=== PATIENT | female | born 1965 | race Caucasian/White ===

== ENCOUNTER → 2016-08-13 | Outpatient (CLI) | payer OTHER ==
[2016-08-13 17:06] LABS: PROLACTIN 8.6 NG/ML
[2016-08-13 17:38] LABS: CONTROL LINE HCG INT CTR LINE PRESENT
[2016-08-13 18:08] LABS: FREE T4 0.78 NG/DL (0.76-1.46); GLUCOSE, FASTING 75 MG/DL (70-105)
[2016-08-13 20:29] LABS: BASO % 0.3 % (0.0-1.0); EOS % 0.3 % (0.0-3.0); LARGE UNSTAINED CELL # 0.1 K/mm3 (0.0-0.4); LARGE UNSTAINED CELL % 2.2 % (0.0-4.0); LYMPH # 1.7 K/mm3 (1.5-4.5); LYMPH % 26.2 % (24.0-44.0); MEAN CORPUSCULAR HEMOGLOBIN 29.3 pg (27.0-33.0); MEAN CORPUSCULAR HGB CONC 31.5 g/dl (32.0-36.5); MEAN CORPUSCULAR VOLUME 93.1 fl (80.0-96.0); MONO # 0.4 K/mm3 (0.0-0.8); MONO % 6.3 % (0.0-5.0); NEUTROPHILS # 4.1 K/mm3 (1.8-7.7); NEUTROPHILS % 64.6 % (36.0-66.0); PLATELET COUNT, AUTOMATED 222 k/mm3 (150-450); RED CELL DISTRIBUTION WIDTH 11.9 % (11.5-14.5); WHITE BLOOD COUNT 6.4 K/mm3 (4.0-10.0)
--- NOTE | 2016-08-14 04:57 | REP ---
Clinical: Fibroids. Endometrial polyp. Technique: Transabdominal pelvic ultrasound followed by transvaginal examination for better evaluation of the endometrium and adnexa with color Doppler evaluation of the ovaries. Findings: Bladder is under distended and measures 11.9 x 4.5 x 11.1 cm. Heterogeneous, retroverted myomatous uterus measures 11.7 x 8.6 x 9.0 cm. The endometrial complex measures 12.9 mm thickness. Submucosal anterior fibroid measures 8.8 cm maximal diameter causing mass effect on the underlying endometrial canal. Bilateral ovaries are normal in appearance and vascularity without evidence for torsion. Right ovary measures 3.0 x 2.1 x 2.1 cm ; R I = 0.57 . Left ovary measures 3.1 x 1.8 x 2.8 cm with 2.3 cm dominant follicle ; R I = 0.54 . No pelvic fluid or adnexal mass lesion . Impression: 1. Large anterior submucosal fibroid measuring 8.8 cm maximal diameter dominating the uterus and causing mass effect on the endometrial canal. The endometrium is thickened to 12.9 mm without discrete polyp or lesion identified. 2. Normal bilateral ovaries without torsion. 2.3 cm dominant follicle noted in the left ovary. Signed by Kyler Power MD 08/14/2016 04:48 A
== END ==
LOC: M RAD 14:16 → M LAB 14:16
PROVIDERS: ATTEND Obstetrics & Gynecology
DX: R61 Generalized hyperhidrosis (principal); D25.1 Intramural leiomyoma of uterus; R93.8 Abnormal findings on diagnostic imaging of other specified body structures

== ENCOUNTER → 2016-08-20 | Day surgery (SDC) | payer OTHER ==
[~2016-08-20] VITALS: Ht 165.1 cm; Wt 64.9 kg
[~2016-08-20] MED LIST: IBUPROFEN 600 MG TAB PO PRN; KETOROLAC 60 MG/2 ML VIAL (J1885) As Ordered ONE; LIDOCAINE 2% INJ 100 MG/5 ML SDV (FOR ANES.) As Ordered ONE; LR 1,000 ML IV ONE; LR 1,000 ML IV SCH; MIDAZOLAM INJ 2 MG/2 ML VIAL (J2250) As Ordered ONE; ONDANSETRON 4MG/2ML VIAL (J2405) As Ordered ONE; ONDANSETRON 4MG/2ML VIAL (J2405) IV PRN; PROPOFOL 200 MG/20 ML VIAL As Ordered ONE; VITA200016 PO; WELLTAB38 PO; dexameTHASONE 4 MG/ML 1ML VIAL (J1100) As Ordered ONE; ePHEDrine SULFATE 25 MG/5 ML(5MG/ML) SYRINGE As Ordered ONE; fentaNYL 100 MCG/2 ML INJECTION (J3010) As Ordered ONE; fentaNYL 100 MCG/2 ML INJECTION (J3010) IV PRN
[2016-08-20 13:00] VITALS: BP 123/72
--- NOTE | 2016-08-20 18:12 | RO ---
DATE OF PROCEDURE: 08/20/2016 PREPROCEDURE DIAGNOSIS/INDICATION FOR SURGERY: Menorrhagia, dysmenorrhea and fibroids. POSTPROCEDURE DIAGNOSIS: Menorrhagia, dysmenorrhea and fibroids. PROCEDURE: Dilatation an curettage (D and C) hysteroscopy. SURGEON: Joleen Randle MD PLASTICS SUPERVISOR: ANESTHESIA: Laryngeal mask anesthesia (LMA). BRIEF DESCRIPTION OF PROCEDURE AND FINDINGS: Poonam was brought to the operating room where sufficient LMA anesthesia was induced and she was prepped, draped and positioned in the usual sterile fashion. The fibroid uterus was carefully sounded to a 11 today with a cavity length of 6.5. We were hopeful that we could get the NovaSure to work. We do not have a working roller ball here. We were able to undertake hysteroscopy with no difficulty. We could see there was no perforation and a smooth cavity. So even though she has an enlarged fibroid uterus it did not seem to be impinging on the cavity excessively so we felt that we could place the NovaSure. We went ahead and placed the NovaSure tested twice and failed both times. Scoped again and there was no perforation. It appeared to be I think a size issue but I am really not sure. We opened another NovaSure because there is clearly no perforation in this uterus. She sounds to 11 not 10 but only has a cavity length of 6.5, and there was no perforation. We placed the NovaSure again and again failed twice, finally which we gave up on the idea of ablation. We do not have a functional roller ball nor resectoscope in this institution to do that type of resection. Went ahead and aggressively curettaged and in fact there is a soft area in this uterus anteriorly lower uterine segment. We did go ahead and sample that carefully and got a good sample of the endometrium which is fairly smoothly overgrown. It is not like there was a polyp or anything like that. She does though have the enlarged fibroid uterus. After aggressive curettage the procedure was ended. ESTIMATED BLOOD LOSS FOR THE PROCEDURE: Maybe 25 mL because we did get a bit of tissue back from that soft area. FLUID REPLACEMENT: Crystalloid. COMPLICATIONS: As noted above. We were unable to get the NovaSure to work. This did not appear to be a cervical leakage issue. I guess it is the length, even though I have had it work in that circumstance before, but we did try two wands to make sure that it was not a matter of malfunction or anything like that. We did scope her multiple times. There is no perforation in this uterus, at least not that ws visible to the naked eye but it is possible for it to fail just simply from being oversized and she does have a very roomy cavity and the width was 4.7. Length was 6.5 with 4.7, that is a roomy cavity so I suspect that was the issue. Again we did not have another device to substitute and of course ThermaChoice is no longer marketed so we had to abandon those efforts and carried out aggressive curettage and we ended the procedure. CONDITION AND DISPOSITION: Poonam tolerated the procedure well. She was recovering in the recovery room in good condition.
== END ==
LOC: M SDC 08:02
PROVIDERS: ATTEND Obstetrics & Gynecology
DX: N92.0 Excessive and frequent menstruation with regular cycle (principal); N94.6 Dysmenorrhea, unspecified; D25.9 Leiomyoma of uterus, unspecified; R01.1 Cardiac murmur, unspecified; L40.9 Psoriasis, unspecified; G43.909 Migraine, unspecified, not intractable, without status migrainosus; F32.9 Major depressive disorder, single episode, unspecified; F41.9 Anxiety disorder, unspecified; Z79.899 Other long term (current) drug therapy

== ENCOUNTER 2021-07-30 14:06 | Emergency (ER) | payer OTHER ==
[~2021-07-30] VITALS: Ht 162.6 cm; Wt 67.9 kg
[~2021-07-30 14:06] MED LIST changes: -IBUPROFEN 600 MG TAB PO PRN; -KETOROLAC 60 MG/2 ML VIAL (J1885) As Ordered ONE; -LIDOCAINE 2% INJ 100 MG/5 ML SDV (FOR ANES.) As Ordered ONE; -LR 1,000 ML IV ONE; -LR 1,000 ML IV SCH; -MIDAZOLAM INJ 2 MG/2 ML VIAL (J2250) As Ordered ONE; -ONDANSETRON 4MG/2ML VIAL (J2405) As Ordered ONE; -ONDANSETRON 4MG/2ML VIAL (J2405) IV PRN; -PROPOFOL 200 MG/20 ML VIAL As Ordered ONE; -dexameTHASONE 4 MG/ML 1ML VIAL (J1100) As Ordered ONE; -ePHEDrine SULFATE 25 MG/5 ML(5MG/ML) SYRINGE As Ordered ONE; -fentaNYL 100 MCG/2 ML INJECTION (J3010) As Ordered ONE; -fentaNYL 100 MCG/2 ML INJECTION (J3010) IV PRN
[2021-07-30 19:10] LABS: HEMATOCRIT 38.3 % (36.0-47.0); HEMOGLOBIN 12.5 g/dl (12.0-15.5); MEAN CORPUSCULAR HEMOGLOBIN 29.1 pg (27.0-33.0); MEAN CORPUSCULAR HGB CONC 32.6 g/dl (32.0-36.5); MEAN CORPUSCULAR VOLUME 89.3 fl (80.0-96.0); PLATELET COUNT, AUTOMATED 207 10^3/uL (150-450); RED BLOOD COUNT 4.29 10^6/uL (4.00-5.40); WHITE BLOOD COUNT 4.9 10^3/uL (4.0-10.0)
[2021-07-30 19:45] LABS: ALBUMIN 3.8 GM/DL (3.2-5.2); ALT/SGPT 25 U/L (12-78); BILIRUBIN,TOTAL 0.6 MG/DL (0.2-1.0); BLOOD UREA NITROGEN 18 MG/DL (7-18); CALCIUM LEVEL 9.4 MG/DL (8.5-10.1); CARBON DIOXIDE LEVEL 28 MEQ/L (21-32); CHLORIDE LEVEL 111 MEQ/L (98-107); CREATININE FOR GFR 0.93 MG/DL (0.55-1.30); GLOMERULAR FILTRATION RATE > 60.0 (>51); GLUCOSE, FASTING 100 MG/DL (70-100); POTASSIUM SERUM 4.3 MEQ/L (3.5-5.1); SODIUM LEVEL 142 MEQ/L (136-145)
[2021-07-30] MEDS ORDERED: PRED10TA2 PO (20:28)
[2021-07-30] MEDS ORDERED: ONDA4TAB6 PO (20:28)
[2021-07-30 20:48] VITALS: BP 138/76
== END 2021-07-30 20:49 | disposition home or self-care (01) ==
LOC: M ED 14:06
DX: R53.83 Other fatigue (principal); R21 Rash and other nonspecific skin eruption; R11.0 Nausea; M25.59 Pain in other specified joint; R51.9 Headache, unspecified; F41.9 Anxiety disorder, unspecified; F32.A Depression, unspecified; Z79.899 Other long term (current) drug therapy